=== PATIENT | male | born 2005 | race Caucasian/White ===

== ENCOUNTER 2025-04-14 01:55 | Emergency (ER) | payer SELFPAY ==
[~2025-04-14] VITALS: Ht 170.2 cm; Wt 90.0 kg
[2025-04-14 02:18] VITALS: TEMP 36.6; O2SAT 98
[2025-04-14] MEDS: LIDOCAINE 5% PATCH TOP SCH (04:01)
[2025-04-14] MEDS: KETOROLAC 15MG/ML VIAL IM ONE (04:01)
[2025-04-14] MEDS: CYCLOBENZAPRINE 10MG TABLET PO ONE (04:01)
[2025-04-14] MEDS ORDERED: LIDO-53 TP (04:25)
[2025-04-14] MEDS ORDERED: NAPR-1176 MT (04:25)
[2025-04-14 04:46] VITALS: BP 138/67; PULSE 82; RESP 18; O2SAT 100
== END 2025-04-14 04:46 | disposition home or self-care (01) ==
LOC: ER 03:05
DX: M25.532 Pain in left wrist (principal); M25.522 Pain in left elbow; J45.909 Unspecified asthma, uncomplicated; Z79.1 Long term (current) use of non-steroidal anti-inflammatories (NSAID); Z79.899 Other long term (current) drug therapy; V89.2XXA Person injured in unspecified motor-vehicle accident, traffic, initial encounter; Y93.89 Activity, other specified; Y92.89 Other specified places as the place of occurrence of the external cause; Y99.8 Other external cause status
CPT/HCPCS: 99284; 73080; 73110; 96372; J1885